=== PATIENT | male | born 1980 | race African-American/Black ===

== ENCOUNTER 2019-02-17 07:23 | Observation (INO) ==
[2019-02-17] MEDS ORDERED: ASPIRIN 325 MG TABLET PO STA (07:40)
[2019-02-17] MEDS ORDERED: METOPROLOL TARTRATE 5 MG/5 ML VIAL IV STA (07:45)
[2019-02-17] MEDS ORDERED: ALUM/MAG/SIMETH/LIDO VISC 1:1 30 ML BOTTLE PO STA (07:49)
[2019-02-17] MEDS ORDERED: KETOROLAC 30 MG/1 ML VIAL IV STA (07:49)
[2019-02-17 08:24] LABS: Basophils % 1.1 % (0.0-0.8); Eosinophils # 0.1 10*3/uL (0.0-0.87); Eosinophils % 2.5 % (0.00-10.9); Hematocrit 39.9 VOL% (42.0-52.0); Hemoglobin 13.1 GM/DL (14.0-18.0); Immature Granulocytes % 0.8 %; Immature Granulocytes Absolute 0.03 #; Lymphocytes # 1.2 10*3/uL (1.4-4.0); Lymphocytes % 33.5 % (21.2-54.2); Mean Corpuscular HGB Conc 32.8 GM/DL (32-36); Mean Corpuscular Volume 79.6 FL (87-102); Mean Platelet Volume 11.6 FL (9.6-12.0); Monocytes % 10.6 % (1.7-12.7); Neutrophils % 51.5 % (38.7-73.9); Platelet Count 220 T/CUMM (130-400); Red Blood Count 5.01 MC/CUMM (3.8-5.5); Red Cell Distribution Width 15.7 % (9.3-17.3); White Blood Count 3.6 T/CUMM (4-12)
[2019-02-17 08:35] LABS: INR 0.9; PT Patient Result 10.1 SECS (9.6-12.2); Partial Thromboplastin Time 25.4 SECS (20.8-36.0)
[2019-02-17 09:05] LABS: Albumin 4.2 G/DL (3.4-5.0); Bilirubin,Total 1.3 MG/DL (0.2-1.0); Calcium 8.6 MG/DL (8.5-10.1); Osmolality,Calculated 277.5 MOS/KG (273-304); Total Protein 8.7 G/DL (6.4-8.3)
[2019-02-17] MEDS ORDERED: ACETAMINOPHEN 325 MG TABLET PO PRN ×2 (09:41→18:03)
[2019-02-17] MEDS ORDERED: ONDANSETRON 4 MG/2 ML VIAL IV PRN (09:41)
[2019-02-17] MEDS ORDERED: PANTOPRAZOLE 40 MG TABLET PO ONE (09:45)
[2019-02-17] MEDS ORDERED: ENOXAPARIN 40 MG/0.4 ML SYRINGE SUBCUT SCH (10:00)
[2019-02-17 10:54] LABS: Apearance,Urine CLEAR (Clear); Bilirubin,Urine Negative (Negative); Blood, Urine Negative (Negative); Glucose,Urine (UA) Negative (Negative); Ketones,Urine Negative (Negative); Mucus,Urine Occasional /LPF (Occasional); Nitrite,Urine Negative (Negative); Protein,Urine 30 MG/DL; RBC,Urine <1 /HPF (0-4); Urine Color Yellow (Yellow); Urine Specific Gravity 1.013 (1.001-1.035); Urine Urobilinogen < 2.0 EU/DL (0.2-1.0); WBC,Urine <1 /HPF (0-6)
[2019-02-17 10:58] LABS: Barbiturates Screen,Urine Negative (Negative); Benzodiazepines Screen,Urine Negative (Negative); Cannabinoid Screen,Urine Negative (Negative); Opiate Screen,Urine Negative (Negative); Phencyclidine Screen,Urine Negative (Negative)
[2019-02-17] MEDS ORDERED: MORPHINE 4 MG/1 ML VIAL IV PRN (11:06)
[2019-02-17] MEDS ORDERED: KETOROLAC 30 MG/1 ML VIAL IV PRN (11:07)
[2019-02-17] MEDS: LISINOPRIL/HCTZ 10-12.5 MG TABLET PO SCH (12:10)
[2019-02-18 05:03] VITALS: BP 121/70
[2019-02-18 05:36] LABS: Risk Ratio 4.8; Thyroid Stimulating Hormone 3.56 uIU/ml (0.358-3.74); VLDL CHOLESTEROL 47.4 MG/DL
[2019-02-18] MEDS: LISINOPRIL/HCTZ 10-12.5 MG TABLET PO SCH (08:53)
[2019-02-18] MEDS ORDERED: PANTOPRAZOLE 40 MG TABLET PO SCH (09:00)
[2019-02-18] MEDS ORDERED: ASPIRIN CHEW 81 MG TABLET PO SCH (09:00)
== END 2019-02-18 10:05 | disposition home or self-care (01) ==
LOC: N.EDINP 07:23 → N.ED 07:23 → SUATTDRO 09:41 → N.2W 10:26
PROVIDERS: ADMIT Internal Medicine; ATTEND Emergency Medicine